=== PATIENT | male | born 1970 | race Hispanic/Latino ===

== ENCOUNTER 2019-06-28 07:58 | Day surgery (SDC) | payer BC ==
[2019-06-28 08:45] LABS: PLATELET COUNT 238 K/uL (142-355)
[2019-06-28 08:53] LABS: POTASSIUM 3.7 mmol/L (3.6-5.2)
== END 2019-06-28 11:40 | disposition home or self-care (01) ==
LOC: OR 07:58
PROVIDERS: Student in an Organized Health Care Education/Training Program
PROC: 0DBL8ZZ Excision of Transverse Colon, Via Natural or Artificial Opening Endoscopic (ICD-10-PCS; principal; 2019-06-28)
DX: D12.3 Benign neoplasm of transverse colon (principal); Z12.11 Encounter for screening for malignant neoplasm of colon
CPT/HCPCS: 80053; 85027; J2001; J2250; J2405; J2704